=== PATIENT | female | born 2005 | race Two or more races ===

== ENCOUNTER 2025-05-29 00:08 | Emergency (ER) | payer MEDICAID ==
[~2025-05-29] VITALS: Ht 152.4 cm; Wt 90.0 kg
[2025-05-29 00:19] VITALS: O2SAT 100
[2025-05-29 00:53] LABS: BASOPHILS % 0.4 % (0.0-2.0); EOSINOPHILS % 0.2 % (0.0-5.0); HEMATOCRIT. 36.3 % (36.0-48.0); HEMOGLOBIN. 12.0 g/dL (12.0-16.0); LYMPHOCYTES % 22.0 % (20.0-50.0); MEAN PLATELET VOLUME 10.7 fl (7.4-10.4); MONOCYTES % 4.8 % (2.0-8.0); NEUTROPHILS % 72.6 % (40.0-76.0); PLATELET 202 x1000/uL (130-400); RED BLOOD CELL COUNT 4.26 mill/uL (4.2-5.4); RED CELL DISTRIBUTION WIDTH 15.5 % (11.6-14.6)
[2025-05-29 01:02] LABS: INR 0.9
[2025-05-29 01:12] LABS: CREATININE 0.5 mg/dL (0.6-1.0); UREA NITROGEN BLOOD 7 mg/dL (9-23)
[2025-05-29 01:14] LABS: ASPARTATE AMINOTRANSFERASE 12 IU/L (<34)
[2025-05-29 01:15] LABS: BILIRUBIN DIRECT < 0.1 mg/dL (<=3.0); BILIRUBIN TOTAL 0.2 mg/dL (0.1-1.0); PROTEIN TOTAL 5.8 g/dL (6.0-8.3)
[2025-05-29 01:26] VITALS: BP 135/86; PULSE 97; RESP 12; TEMP 36.8; O2SAT 97
[2025-05-29 01:34] LABS: HCG SCREEN POSITIVE
[2025-05-29 02:00] LABS: B-HCG QUANTITATIVE 24904 mIU/mL (<6)
[2025-06-01 04:10] LABS: HSV TYPE 2 SPECIFIC AB IGG Non Reactive (Non Reactive)
== END 2025-05-29 01:47 | disposition short-term general hospital (02) ==
LOC: ER 00:08
DX: O62.9 Abnormality of forces of labor, unspecified (principal); Z3A.37 37 weeks gestation of pregnancy; Z88.0 Allergy status to penicillin; Z79.899 Other long term (current) drug therapy; Z98.890 Other specified postprocedural states
CPT/HCPCS: 36415; 76815; 80048; 80076; 80320; 83735; 84702; 84703; 85025; 86592; 86695; 86696; 86850; 86900; 87340; 99285; G0480